=== PATIENT | female | born 1975 | race Caucasian/White ===

== ENCOUNTER 2022-11-05 04:22 | Day surgery (SDC) | payer OTHER ==
[2022-11-04 11:20] VITALS: BMI 22.8
[2022-11-05 12:17] VITALS: TEMP 98
[2022-11-05 12:23] VITALS: BP 121/75; PULSE 62; RESP 17
== END 2022-11-05 11:37 | disposition home or self-care (01) ==
LOC: JASU-ENDO 04:22
PROVIDERS: ATTEND Internal Medicine Gastroenterology
PROC: 0DBH8ZX Excision of Cecum, Via Natural or Artificial Opening Endoscopic, Diagnostic (ICD-10-PCS; principal; 2022-11-05 10:00)
DX: Z12.11 Encounter for screening for malignant neoplasm of colon (principal); D12.0 Benign neoplasm of cecum; K64.8 Other hemorrhoids; K57.30 Diverticulosis of large intestine without perforation or abscess without bleeding
CPT/HCPCS: 81025; 88305-TC